=== PATIENT | female | born 1960 | race Caucasian/White ===

== ENCOUNTER 2016-09-29 10:29 | Emergency (ER) | payer MEDICAID ==
[~2016-09-29] VITALS: Ht 165.1 cm; Wt 65.8 kg
--- NOTE | 2016-09-29 10:30 | NUR ---
BIB EMS with c/o drug overdose on Xanax after a possible suicide attempt. Pt is difficult to arouse on arrival, Dr Hernández, nursing staff and RT at bedside on arrival.
[2016-09-29] MEDS ORDERED: IV NORMAL SALINE 1000 ML BAG IV ONE ×2 (10:45→11:30)
[2016-09-29] MEDS ORDERED: METO25TA6 PO (10:48)
[2016-09-29] MEDS ORDERED: LEVO88TA5 PO (10:48)
[2016-09-29] MEDS ORDERED: NORT10CA PO (10:48)
[2016-09-29] MEDS ORDERED: TRAZ-144 PO (10:48)
[2016-09-29] MEDS ORDERED: ATOR20TA27 PO (10:48)
[2016-09-29] MEDS ORDERED: ALPR0.5T8 PO (10:49)
[2016-09-29] MEDS ORDERED: FLUO40CA49 PO (10:49)
[2016-09-29] MEDS ORDERED: CLOP75TA33 PO (10:51)
[2016-09-29] MEDS ORDERED: PARO20TA51 PO (10:51)
[2016-09-29] MEDS ORDERED: TEMA15CA PO (10:51)
[2016-09-29] MEDS ORDERED: LISI-607 PO (10:51)
[2016-09-29 11:19] LABS: EOSINOPHILS # (AUTO) 0.1 K/uL (0.0-0.7); EOSINOPHILS % (AUTO) 3.1 % (0.0-7.0); HEMATOCRIT 38.5 % (31.2-41.9); HEMOGLOBIN 13.2 g/dL (10.9-14.3); LYMPHOCYTES # (AUTO) 1.2 K/uL (20.0-40.0); LYMPHOCYTES % (AUTO) 24.6 % (20.5-51.5); MEAN CORPUSCULAR HEMOGLOBIN 30.7 uug (24.7-32.8); MEAN CORPUSCULAR HGB CONC 34 g/dL (32.3-35.6); MEAN CORPUSCULAR VOLUME 89.6 fL (75.5-95.3); MONOCYTES # (AUTO) 0.4 K/uL (2.0-10.0); MONOCYTES % (AUTO) 8.4 % (0.0-11.0); NEUTROPHILS % (AUTO) 62.9 % (38.5-71.5); PLATELET COUNT (AUTO) 179 K/uL (179-408); RED CELL DISTRIBUTION WIDTH 13.9 % (12.3-17.7); WHITE BLOOD COUNT (AUTO) 4.7 K/uL (3.8-11.8)
[2016-09-29] MEDS ORDERED: PROPOFOL 100 ML IV ONE (11:24)
[2016-09-29 11:25] LABS: CALCIUM 9.1 mg/dL (8.5-10.1); CARBON DIOXIDE 26 mmol/L (21-32); CHLORIDE 107 mmol/L (98-107); GFR 57 mL/min (>60); GLUCOSE 88 mg/dL (74-106); SODIUM SERUM 142 mmol/L (136-145); UREA NITROGEN, BLOOD 12 mg/dL (7-18)
[2016-09-29] MEDS ORDERED: PROPOFOL 100 ML ONE (11:26)
[2016-09-29] MEDS ORDERED: FENTANYL CITRATE 100 MCG/2 ML AMPUL ONE (11:27)
[2016-09-29 11:30] LABS: ALANINE AMINOTRANSFERASE 22 U/L (14-59); ALBUMIN 3.5 g/dL (3.4-5.0); ALKALINE PHOSPHATASE 77 U/L (50-136); ASPARTATE AMINOTRANSFERASE 16 U/L (15-37); BILIRUBIN,DIRECT 0.1 mg/dL (0.0-0.2); BILIRUBIN,TOTAL 0.5 mg/dL (0.2-1.0); TOTAL PROTEIN, SERUM 6.7 g/dL (6.4-8.2)
[2016-09-29] MEDS ORDERED: ROCURONIUM BROMIDE 50 MG/5 ML VIAL IV ONE (11:30)
[2016-09-29] MEDS ORDERED: HYDROMORPHONE 1 MG/1 ML DISP.SYRIN IV ONE (11:30)
[2016-09-29] MEDS ORDERED: ETOMIDATE 20 MG/10 ML VIAL IV ONE (11:30)
--- NOTE | 2016-09-29 11:30 | NUR ---
INTUBATED PT WITH ET TUBE SIZE 7.5. SECURED AT APPROX. 25 CM AT MID LIP. PLACED ON VENT WEST WITH SETTINGS OF AC 16, VT 400, PEEP 5 AND FIO2 50% WITH PATIENT SATURATING 100%. PT IS SEDATED AT THIS TIME AND WAS HARDLY RESPONSIVE. C X RAY WAS DONE AND ABG TO FOLLOW POST 30 MINUTES.
[2016-09-29 11:32] LABS: ACETAMINOPHEN < 2.0 ug/mL (10-30)
[2016-09-29] MEDS ORDERED: HYDROMORPHONE 1 MG/1 ML DISP.SYRIN ONE (11:34)
[2016-09-29 11:37] LABS: ETHANOL < 3 MG/DL (0-0); THYROID STIMULATING HORMONE 1.417 mIU/mL (0.358-3.740)
[2016-09-29 11:39] LABS: AMMONIA < 10 umol/L (11-32)
[2016-09-29 11:39] LABS: *BILIRUBIN,URIN NEGATIVE (NEGATIVE); *BLOOD, URINE Trace-lysed (NEGATIVE); *CLARITY,URINE SLIGHTLY CLOUDY (CLEAR); *COLOR,URINE YELLOW (YELLOW); *KETONES,URINE NEGATIVE (NEGATIVE); *PROTEIN,URINE NEGATIVE (NEGATIVE); *UROBILINOGEN,URINE 0.2 E.U./dl (NORMAL); LEUKOCYTE ESTERASE ,URINE NEGATIVE (NEGATIVE); NITRITE, URINE NEGATIVE (NEGATIVE); PH,URINE 5.5 (5.0-8.0); UGLUCOSE NEGATIVE (NEGATIVE)
[2016-09-29 11:43] LABS: *URINE HCG, QUAL NEGATIVE (NEGATIVE)
[2016-09-29 11:48] LABS: BACTERIA,URINE NONE SEEN /HPF (NONE SEEN); RBC,URINE 0-3 /HPF (0-3); SQUAMOUS EPITHELIAL CELL,UR MODERATE /HPF (NONE SEEN); WBC,URINE 0-3 /HPF (0-3)
[2016-09-29 11:49] LABS: *AMPHETAMINE, URINE NEGATIVE (NEGATIVE); *BARBITURATE, URINE NEGATIVE (NEGATIVE); *CANNABINOID, URINE NEGATIVE (NEGATIVE); *COCCAINE, URINE NEGATIVE (NEGATIVE); *OPIATE, URINE NEGATIVE (NEGATIVE); *PHENCYCLIDINE SCREEN,URINE NEGATIVE (NEGATIVE)
--- NOTE | 2016-09-29 11:50 | NUR ---
Per Dr Hernández he spoke with [facility] and pt to be trans to [facility] to call back with further info.
[2016-09-29] MEDS ORDERED: LIDOCAINE 2% 100 MG/5 ML SYRINGE IVP ONE (12:00)
[2016-09-29] MEDS ORDERED: FENTANYL CITRAT IV 1,250 MCG in IV NORMAL SALINE 225 ML IV PRN (12:00)
[2016-09-29] MEDS ORDERED: MISCELLANEOUS MED XX ONE (12:00)
[2016-09-29] MEDS ORDERED: ETOMIDATE 20 MG/10 ML VIAL MC ONE (12:00)
[2016-09-29 12:27] LABS: ABG BASE EXCESS -5.3 mmol/L; ABG HCO3 19.2 mmol/L; ABG PH 7.369 (7.350-7.450); ABG PO2 193.1 mmHg (75.0-100.0); ABG SITE RIGHT RADIAL; ABG TOTAL HEMOGLOBIN 12.6 G/dL (12.0-16.0); COHb 2.2 % (0.5-1.5); MetHb 0.2 % (0.0-1.5); VENT MODE VENT - A/C; VT, ABG 400 mL
--- NOTE | 2016-09-29 13:10 | NUR ---
Per [facility] pt will be going to [facility], for report, Dr Wang accepting, [facility] transport with eta of 1 hr.
--- NOTE | 2016-09-29 13:45 | NUR ---
Report given to Deyanira at [facility] via telephone.
--- NOTE | 2016-09-29 14:00 | NUR ---
[facility] ambulance arrived, pt b/p 91/55, Propofol decreased to 10mcg/min.
[2016-09-29] MEDS ORDERED: NOREPINEPHRINE BITARTRATE 8 MG in IV DEXTROSE 5% 500 ML IV ONE (14:15)
[2016-09-29 14:25] VITALS: BP 86/53
--- NOTE | 2016-09-29 14:50 | NUR ---
Fentanyl drip 100mcg/hr was continued upon transfer to [facility] via [facility] ambulance per Dr Hernández order, pt received 250mcg total in ER with 1000mcg remaining upon transfer, witnessed by Dr Hernández.
--- NOTE | 2016-09-29 14:50 | NUR ---
Pt trans to [facility] via [facility] ambulance.
== END 2016-09-29 15:18 | disposition short-term general hospital (02) ==
LOC: ER 10:29
DX: T50.902A Poisoning by unspecified drugs, medicaments and biological substances, intentional self-harm, initial encounter (principal); F32.9 Major depressive disorder, single episode, unspecified; E03.9 Hypothyroidism, unspecified; E78.5 Hyperlipidemia, unspecified; Z88.0 Allergy status to penicillin; Y92.89 Other specified places as the place of occurrence of the external cause
CPT/HCPCS: 36415; 36600; 51702; 71010; 80307; 84443; 84703; 85025; 85730; 93005; 94002; A4663; G0480-TC; G6040-TC; J1170; J2001; J3010; J3490; J7030; J7050; J7060